=== PATIENT | male | born 1980 | race Native Hawaiian/Other Pacific Islander ===

== ENCOUNTER 2022-05-22 08:58 | Emergency (ER) | payer OTHER ==
[~2022-05-22] VITALS: Ht 185.4 cm; Wt 103.4 kg
[2022-05-22 09:05] VITALS: TEMP 97
[2022-05-22] MEDS ORDERED: BIKTARVY 50-2001 TAB PO (09:14)
[2022-05-22] MEDS ORDERED: PANTOPRAZOLE 40MG TA PO (09:16)
[2022-05-22] MEDS ORDERED: LISI10TA11 PO (09:17)
[2022-05-22] MEDS ORDERED: JANUMET1 TA1 PO (09:17)
[2022-05-22] MEDS ORDERED: LEVIMIR SC (09:19)
[2022-05-22 10:20] VITALS: BP 140/80
== END 2022-05-22 10:22 | disposition home or self-care (01) ==
LOC: ED 08:58
DX: L25.9 Unspecified contact dermatitis, unspecified cause (principal); Z21 Asymptomatic human immunodeficiency virus [HIV] infection status
CPT/HCPCS: 99281